=== PATIENT | male | born 1975 | race Caucasian/White ===

== ENCOUNTER 2021-07-22 15:29 | Emergency (ER) | payer OTHER ==
[~2021-07-22] VITALS: Ht 167.6 cm; Wt 83.9 kg
[2021-07-22 15:49] VITALS: BP 142/103
--- NOTE | 2021-07-22 16:31 | NUR ---
PT LEFT WITHOUT BEING SEEN. UNABLE TO LOCATE PT IN LOBBY OR BY PHONE
== END 2021-07-22 16:31 | disposition left against medical advice (07) ==
LOC: MED 15:29
DX: J02.9 Acute pharyngitis, unspecified (principal); Z53.21 Procedure and treatment not carried out due to patient leaving prior to being seen by health care provider